=== PATIENT | female | born 2005 | race African-American/Black ===

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

== ENCOUNTER 2025-02-13 15:09 | Emergency (ER) | payer MEDICAID ==
[~2025-02-13] VITALS: Ht 152.4 cm; Wt 63.2 kg
[~2025-02-13 15:09] MED LIST changes: -AUG875T PO; +CEPH500C PO
--- NOTE | 2025-02-13 16:00 | ED.PDOC ---
GI ASSESSMENT HPI Comments 19 y/o F, presents to the ED for CC of pelvic pain. Patient states, she has been experiencing pelvic pain x2days. Patient reports, further associated symptoms of constipation with LBM being over [id number] ago. Patient denies nausea, vomiting, diarrhea, fever, chills, vaginal discharge, or urinary symptoms. No other symptoms or modifying factors are present at this time. Chief Complaint: Pelvic Pain Time Seen by MD: 15:30 Primary Care Provider: none Reviewed Notes: Nurses Notes, Medications, Allergies Allergies: Coded Allergies: NO KNOWN ALLERGIES (Unverified , 05/19/18) Home Meds Active Scripts Cephalexin Monohydrate (Cephalexin) 500 Mg Cap, 1 CAP PO TID, #15 CAP Prov:ELLEN GRIMES MD 10/29/24 Acetaminophen (Tylenol Extra Strength) 500 Mg Tab, 1000 MG PO Q6HP PRN, #30 TAB prn fever or pain Prov:AURELIO WU MD 03/27/24 Omeprazole Magnesium (Omeprazole) 20 Mg Tab, 20 MG PO DAILY, #30 TAB Prov:AURELIO WU MD 03/27/24 Ondansetron Odt 4MG Tab (ZOFRAN PO) 4 Mg Tb, 4 MG PO TID PRN, #20 TAB prn nausea/vomiting ODT TAB-DISSOLVE IN MOUTH, THEN SWALLOW Prov:AURELIO WU MD 03/27/24 Information Source: Patient Mode of Arrival: Ambulatory Timing: Days Duration: Since onset Prehospital treatment: None Quality: None Vomitus: None Stool: Impaction Severity: Moderate Recent: None Recent Hx of: None Modifying Factors: Nothing Associated sign and symptoms: Constipation, Abdominal Pain Past Medical History PAST MEDICAL HISTORY: Denies Surgical History: Denies all surgeries [employer] History: No Pertinent [employer] History Family History Family History: Unknown Social History Smoker: Non-Smoker Alcohol: Denies ETOH Use Drugs: Denies Drug Use Lives In: Home Constitutional: denies: chills, diaphoresis, fatigue, fever, malaise, sweats, weakness, others EENTM: denies: blurred vision, double vision, ear bleeding, ear discharge, ear drainage, ear pain, ear ringing, eye pain, eye redness, hearing loss, mouth pain, mouth swelling, nasal discharge, nose bleeding, nose congestion, nose pain, photophobia, tearing, throat pain, throat swelling, voice changes, others Respiratory: denies: cough, hemoptysis, orthopnea, SOB at rest, shortness of breath, SOB with excertion, stridor, wheezing, others Cardiovascular: denies: chest pain, dizzy spells, diaphoresis, Dyspnea on exertion, edema, irregular heart beat, left arm pain, lightheadedness, palpitations, PND, syncope, others Gastrointestinal: reports: constipated; denies: abdomen distended, abdominal pain, blood streaked bowels, diarrhea, dysphagia, difficulty swallowing, hematemesis, melena, nausea, poor appetite, poor fluid intake, rectal bleeding, rectal pain, vomiting, others Genitourinary: reports: others (pelvic pain); denies: abnormal vagina bleeding, burning, dyspareunia, dysuria, flank pain, frequency, hematuria, incontinence, pain, , vagina discharge, urgency Neurological: denies: dizziness, fainting, headache, left sided numbness, left sided weakness, numbness, paresthesia, pre-existing deficit, right sided nu mbness, right sided weakness, seizure, speech problems, tingling, tremors, weakness, others Musculoskeletal: denies: back pain, gout, joint pain, joint swelling, muscle pain, muscle stiffness, neck pain, others Integumetry: denies: bruises, change in color, change in hair/nails, dryness, laceration, lesions, lumps, rash, wounds, others Allergic/Immunocompromised: denies: Difficulty Healing, Frequent Infections, Hives, Itching, others Hematologic/Lymphatic: denies: anemia, blood clots, easy bleeding, easy bruising, swollen glands, others Endocrine: denies: excessive hunger, excessive sweating, excessive thirst, excessive urination, flushing, intolerance to cold, intolerance to heat, unexplained weight gain, unexplained weight loss, others Psychiatric: denies: anxiety, bipolar disorder, depression, hopeless, panic disorder, schizophrenia, sleepless, suicidal, others All Other Systems: Reviewed and Negative Physical Exam General Appearance: Normal, Other (appears uncomfortable) HEENT: Normal ENT Inspection, Pharynx Normal Neck: Full Range of Motion, Non-Tender, Normal, Normal Inspection Respiratory: Chest Non-Tender, Lungs Clear, No Accessory Muscle Use, No Respiratory Distress, Normal Breath Sounds Cardiovascular: No Edema, No Murmur, No Gallop, Normal Peripheral Pulses, Regular Rate/Rhythm Breast Exam: Deferred Gastrointestinal: No Organomegaly, Non Tender, No Pulsatile Mass, Normal Bowel Sounds, Soft Genitalia: Deferred Pelvic: Deferred Rectal: Deferred Extremities: No calf tenderness, Normal capillary refill, Normal inspection, Normal range of motion, Non-tender, No pedal edema Musculoskeletal : Apperance: Normal Neurologic: Alert, buffer copper II-XII nml as Tested, No Motor Deficits, Normal Affect, Normal Mood, No Sensory Deficits Cerebellar Function: Normal Reflexes: Normal Skin: Dry, Normal Color, Warm Lymphatic: No Adenopathy Was a procedure done? Was a procedure done?: No GI differential Dx Differential Diagnosis: Cholangitis, Constipation, Inflammatory BD, UTI, Urolithiasis, Other (rectocele) X-Ray, Labs, Meds, VS Vital Signs Date Time Temp Pulse Resp B/P (MAP) Pulse Ox O2 Delivery O2 Flow Rate FiO2 02/13/25 17:30 98.7 02/13/25 15:14 98.0 95 16 134/80 97 98.0 Lab Test 02/13/25 16:18 02/13/25 16:15 Range/Units Urine Test Negative Negative Urine Color Light-yellow Yellow Urine Clarity Turbid H Clear Urine pH 5.5 5.0-9.0 Urine Specific [place] 1.014 1.001-1.035 Urine Protein Negative Negative Urine Ketones Negative Negative Urine Blood Trace H Negative /uL Urine Nitrite Negative Negative Urine Bilirubin Negative Negative Urine Urobilinogen Normal Negative mg/dL Urine Leukocyte Esterase 3+ Negative /uL Urine RBC 9 0 - 4 /hpf Urine Microscopic WBC 357 H 0-5 /HPF Urine Squamous Epithelial Cells Few <5 /hpf Urine Bacteria Few H None Seen /hpf Urine Glucose Normal Normal mg/dL Current Medications Medications (Trade) Dose Ordered Sig/Ayaka Route Start Time Stop Time Status Last Admin Acetaminophen (Tylenol Tablet) 650 mg ONCE ONCE PO 02/13/25 17:30 02/13/25 17:34 DC 02/13/25 17:30 Time of 1ST Reevaluation: 16:00 Reevaluation 1ST: Unchanged Patient Education/Counseling: Diagnosis, Treatment Family Education/Counseling: No Family Present SEPSIS Sepsis Screen Date sepsis recognized/suspect: Feb 13, 2025 Time Sepsis recognized/suspect: 1518 Recent Procedure: No On Antibiotic Therapy: No Respiratory Rate >20: No Heart Rate >90: Yes Temp<36 C (96.8 F) or >38.3 C: No SBP <90 or MAP <65 mmHG: No New Acute Mental Status Change: No Is the patient on CPAP, BIPAP,: No Physician Orders Kub Abdomen Single View (02/13/25 17:19) Vital Signs Date Time Temp Pulse Resp B/P (MAP) Pulse Ox O2 Delivery O2 Flow Rate FiO2 02/13/25 17:30 98.7 02/13/25 15:14 98.0 95 16 134/80 97 98.0 Medications Medications Dose Ordered Sig/Ayaka Route Start Time Stop Time Status Last Admin Dose Admin Acetaminophen 650 mg ONCE ONCE PO 02/13/25 17:30 02/13/25 17:34 DC 02/13/25 17:30 Departure 1 Departure Time of Disposition: 18:42 (Patient with a acute cystitis. Patient also with a constipation. We will treat patient with antibiotics and discharge patient home with outpatient follow up) Impression: Primary Impression: Acute cystitis Additional Impression: Constipation Disposition: 01 HOME / SELF CARE / HOMELESS Condition: Stable Additional Instructions: You are constipated. You also have a urinary tract infection You were prescribed antibiotics. Please take as directed. For pain you can take the followinam: Ibuprofen 400mg with food Noon: Acetaminophen 1000mg 4pm: Ibuprofen 400mg with food 8pm: Acetaminophen 1000mg It is important to stay well rested and well hydrated. You should eat a high-fiber diet. Were prescribed GoLYTELY. This will help you have a bowel movement. You can also take MiraLax daily. If your symptoms worsen or you have any other concerns please return to the emergency room. e-Prescriptions Peg 6419-Orj-Yve Bicarb-Sod Ch (Gavilyte-C) Lindsay 1 BOT PO ONCE PRN for 1 Day, #1 BOTTLE Prov: WEST GAINES MD 02/13/25 Cefdinir (Cefdinir) 300 Mg Cap 1 CAP PO BID for 5 Days, #14 CAP Prov: WEST GAINES MD 02/13/25 Discharged With: Self Critical Care Note Critical Care Time?: No Stability Stability form required: No Heart Score Heart Score: Heart Score Response (Comments) Value History N/A 0 EKG N/A 0 Age N/A 0 Risk Factors N/A 0 Troponin N/A 0 Total 0 I personally scribed for WEST GAINES MD ([email or web address]) on 02/13/25 at 16:00. Electronically submitted by Daylin Luna ([email or web address]). I personally scribed for WEST GAINES MD ([email or web address]) on 02/13/25 at 16:02. Electronically submitted by Daylin Luna ([email or web address]). I personally scribed for WEST GAINES MD ([email or web address]) on 02/13/25 at 17:05. Electronically submitted by Daylin Luna ([email or web address]). WEST GAINES MD Feb 13, 2025 16:00
[2025-02-13 16:43] LABS: Urine Protein, UAD Negative (Negative)
[2025-02-13] MEDS: ACETAMINOPHEN 325 MG TAB PO ONE (17:30)
--- NOTE | 2025-02-13 17:51 | DVH ---
EXAM: XY KUB ABDOMEN SINGLE VIEW INDICATION: abdominal pain COMPARISON: None TECHNIQUE: 2 radiographic views of the abdomen. FINDINGS: Nonobstructive bowel gas pattern noted. There is no definite evidence for pneumoperitoneum. No abnormal calcifications noted. IMPRESSION: 1. Nonobstructive bowel gas pattern.
[2025-02-13] MEDS ORDERED: PEGSOL PO (18:47)
[2025-02-13] MEDS ORDERED: CEFD300C2 PO (18:47)
[2025-02-13 19:07] VITALS: BP 102/70; PULSE 76; RESP 18; TEMP 98.7; O2SAT 97
== END 2025-02-13 19:08 | disposition home or self-care (01) ==
LOC: ER 15:09
DX: N30.00 Acute cystitis without hematuria (principal); K59.00 Constipation, unspecified
CPT/HCPCS: 74018; 81001; 81025